=== PATIENT | female | born 2000 | race Caucasian/White ===

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

== ENCOUNTER 2019-01-04 13:24 | Emergency (ER) | payer OTHER ==
[~2019-01-04] VITALS: Ht 172.7 cm; Wt 69.0 kg
[2019-01-04 13:47] VITALS: BP 124/64
--- NOTE | 2019-01-04 14:06 | NUR ---
PT STATES SHE HAD WHAT SEEMED LIKE A PIMPLE ABOVE THE RIGHT EYE TWO DAYS AGO. SHE PICKED AT IT AND IT SPREAD. RIGHT EYE SWELLING. PT STATES BLURRY EYE
== END 2019-01-04 14:31 | disposition home or self-care (01) ==
LOC: ED 13:50
DX: L02.811 Cutaneous abscess of head [any part, except face] (principal); F17.200 Nicotine dependence, unspecified, uncomplicated
CPT/HCPCS: 99283

== ENCOUNTER 2019-07-21 18:22 | Emergency (ER) | payer OTHER ==
[~2019-07-21] VITALS: Ht 172.7 cm; Wt 70.2 kg
[2019-07-21] MEDS ORDERED: ACETAMINOPHEN 500 MG TABLET PO ONE (19:30)
[2019-07-21] MEDS ORDERED: SODIUM CHLORIDE FLUSH 10ML SYR IVF ONE (19:30)
[2019-07-21] MEDS ORDERED: LIDOCAINE 1%-EPI 1:100K, 20ML INFIL ONE (19:30)
[2019-07-21] MEDS ORDERED: VANCOMYCIN 1,400 MG in SODIUM CHLORIDE 0.9% 250 ML IV ONE (19:30)
[2019-07-21] MEDS ORDERED: VANCOMYCIN PER PHARMACY MC ONE (19:30)
[2019-07-21] MEDS ORDERED: SODIUM CHLORIDE 0.9% 1,000ML IVBOLUS ONE (19:30)
[2019-07-21] MEDS ORDERED: PIPERACILLIN/TAZO/PMX 3.375GM 50 ML IVPB ONE (19:30)
[2019-07-21] MEDS ORDERED: PHARMACOKINETIC CONSULTATION MC ONE (19:30)
[2019-07-21] MEDS ORDERED: LIDOCAINE 1%-EPI 1:100K, 20ML ONE (19:35)
[2019-07-21] MEDS ORDERED: PIPERACILLIN/TAZO/PMX 3.375GM 50 ML ONE (19:36)
[2019-07-21] MEDS ORDERED: ACETAMINOPHEN 500 MG TABLET ONE (19:36)
[2019-07-21] MEDS ORDERED: LIDOCAINE-MPF 1%, 5ML ONE (19:36)
[2019-07-21 19:44] LABS: BASOPHILS # (AUTO) 0.03 x10^3/uL (0-0.3); BASOPHILS % (AUTO) 0 % (0-1); EOSINOPHILS # (AUTO) 0.21 x10^3/uL (0-0.8); EOSINOPHILS % (AUTO) 3 % (1-7); LYMPHOCYTES # (AUTO) 0.91 x10^3/uL (1-6.1); LYMPHOCYTES % (AUTO) 13 % (22-44); MD NO; MEAN CORPUSCULAR HGB CONC 32.3 g/dL (32.4-35.8); MEAN CORPUSCULAR VOLUME 86.5 fL (80-100); MEAN PLATELET VOLUME 8.4 fL (7.4-10.4); MONOCYTES # (AUTO) 0.65 x10^3/uL (0-1.4); MONOCYTES % (AUTO) 9 % (2-9); NEUTROPHILS # (AUTO) 5.41 x10^3/uL (1.8-8.0); NEUTROPHILS % (AUTO) 75 % (42-75); PLATELET COUNT 231 x10^3/uL (130-400); RED BLOOD COUNT 4.16 x10^6/uL (3.82-5.3); RED CELL DISTRIBUTION WIDTH 12.9 % (9.6-15.2)
[2019-07-21 19:53] LABS: ALBUMIN 3.6 g/dL (3.4-5.0); ANION GAP 6 mmol/L (5-15); CALCIUM 8.4 mg/dL (8.5-10.1); CHLORIDE 105 mmol/L (98-107); CREATININE 0.82 mg/dL (0.55-1.02)
--- NOTE | 2019-07-21 20:40 | NUR ---
Patient into room, looks well nourished. Face has multiple small scabs and arms have multiple injection sites with several being swollen, hard to the touch, but without warmth, redness or tenderness to the touch. Patient admits to drug use of heroin and methamphetamine with last narcotic use this am. Patient comes in complaining of warmth and tenderness to the upper thigh. Patient has sister at bedside. Patient assessed by provider. Orders placed. Reviewed with patient medications and labs to be drawn. RN and phlebotomy to bedside, iv started with first set of blood cultures and chopped strand operator edmond second set of blood cultures and the rest of labs. Patient became extremely anxious, complaining about abdominal pain. Patient was disconnected from monitor, allowed to use the bathroom. Patient after several minutes finished up in bathroom, began talking at a high rate and was difficult to understand. Patient stating that she didn't want to be in the hospital anymore and wanted to leave. Educated the patient on the AMA process and then emphasized education on sepsis given patient's low blood pressure and high heart rate. Patient finally accepting of staying. Started first course of antibiotics and fluids. Midlevel provider to bedside to numb area. Patient anxious and yelling. See provider note for procedure. Patient then calmed down after complete and lights turned off. Now sleeping.
--- NOTE | 2019-07-21 21:18 | NUR ---
RN to bedside to start, patient sleeping. Physician in to educate patient on lab values and response to interventions in the ER. Patient expressing desire to go home. Provider educated patient on options and gave the patient a 50% chance of needing to return to the ER if she goes home on antiobiotics. Patient verbalized understanding. Acknowledges that her vitals are likely affected by being "dope sick" per patient's statement. Second antiobiotics started with physician at bedside. Awaiting to finish fluids and iv abx.
--- NOTE | 2019-07-21 22:19 | NUR ---
Provider to bedside for recheck. Patient sleeping, patient hr still sinus tachycardia but has leveled off at near sinus rhythm. Vancomycin still running, will inform to recheck when antibiotics complete.
[2019-07-21 23:06] VITALS: BP 119/62
== END 2019-07-21 23:21 | disposition home or self-care (01) ==
LOC: ED 21:02
DX: L03.116 Cellulitis of left lower limb (principal); L02.416 Cutaneous abscess of left lower limb; F15.10 Other stimulant abuse, uncomplicated; F11.10 Opioid abuse, uncomplicated; Z87.891 Personal history of nicotine dependence
CPT/HCPCS: 10060; 36415; 80048; 82040; 83605; 85025; 87040; 96365; 96366; 96368; 99283; J2543; J3370; J7030; J7050

== ENCOUNTER 2019-10-10 08:22 | Emergency (ER) | payer MEDICAID, OTHER ==
[~2019-10-10] VITALS: Ht 172.7 cm; Wt 70.7 kg
--- NOTE | 2019-10-10 08:40 | NUR ---
PA-C IS AT THE BEDSIDE FOR ASSESSMENT.
--- NOTE | 2019-10-10 08:42 | NUR ---
IS AT THE BEDSIDE
[2019-10-10] MEDS ORDERED: SODIUM CHLORIDE FLUSH 10ML SYR IVF ONE (09:00)
--- NOTE | 2019-10-10 09:05 | NUR ---
HORTENCIA (rn) is assuming care of this pt at this time. sbar rEPORT WAS EXCHANGED AT THE BEDSIDE.
[2019-10-10 09:15] LABS: BASOPHILS # (AUTO) 0.02 x10^3/uL (0-0.3); BASOPHILS % (AUTO) 0 % (0-1); EOSINOPHILS # (AUTO) 0.25 x10^3/uL (0-0.8); EOSINOPHILS % (AUTO) 4 % (1-7); LYMPHOCYTES # (AUTO) 1.26 x10^3/uL (1-6.1); LYMPHOCYTES % (AUTO) 21 % (22-44); MD NO; MEAN CORPUSCULAR HEMOGLOBIN 26.3 pg (27.0-34.8); MEAN CORPUSCULAR HGB CONC 32.9 g/dL (32.4-35.8); MEAN CORPUSCULAR VOLUME 79.8 fL (80-100); MEAN PLATELET VOLUME 8.1 fL (7.4-10.4); MONOCYTES # (AUTO) 0.61 x10^3/uL (0-1.4); MONOCYTES % (AUTO) 10 % (2-9); NEUTROPHILS # (AUTO) 3.88 x10^3/uL (1.8-8.0); NEUTROPHILS % (AUTO) 65 % (42-75); PLATELET COUNT 258 x10^3/uL (130-400); RED BLOOD COUNT 4.16 x10^6/uL (3.82-5.3); RED CELL DISTRIBUTION WIDTH 14.4 % (9.6-15.2)
--- NOTE | 2019-10-10 09:15 | NUR ---
report received from ANTHONY Bob at bedside. pt drowsy, resps even and unlabored. bp and spo2 monitors in place. PIV placed by RN Paulino. pt awaiting hcg level prior to CT scan.
[2019-10-10 09:24] LABS: ALANINE AMINOTRANSFERASE 9 U/L (12-78); ALBUMIN 3.1 g/dL (3.4-5.0); ANION GAP 7 mmol/L (5-15); CALCIUM 8.1 mg/dL (8.5-10.1); CHLORIDE 102 mmol/L (98-107); CREATININE 0.77 mg/dL (0.55-1.02)
[2019-10-10 09:29] LABS: ALKALINE PHOSPHATASE 109 U/L (45-117); BILIRUBIN,TOTAL 0.3 mg/dL (0.2-1.0); TOTAL PROTEIN 7.5 g/dL (6.4-8.2)
--- NOTE | 2019-10-10 09:30 | NUR ---
late entry d/t patient care: pt admits to using heroin this am, just prior to arrival to ED. pt states she does not have any drugs on her person. pt's pupils are 3mm, equal round and reactive. Pt's belongings placed in bag, on chair in room. all monitors in place, call light in reach, pt instructed to call for staff assistance before getting out of bed. awaiting CT and dispo.
[2019-10-10] MEDS ORDERED: OMNIPAQUE 350 MG/ML, 100ML BOTTLE ONE (10:26)
--- NOTE | 2019-10-10 10:37 | NUR ---
pt remains drowsy, awakens to voice, oriented x 4. pt denies pain. resps even and unlabored. pupils equal, round and reactive to light, 3mm. call light in reach. awaiting CT results and dispo.
--- NOTE | 2019-10-10 11:02 | NUR ---
pt sleeping, resps even and unlabored. nsr on hall monitor with no ectopy. all results back, awaiting ENT consult and dispo at this time.
--- NOTE | 2019-10-10 11:05 | NUR ---
dr marques spoke with dr bonnie dumont
--- NOTE | 2019-10-10 11:09 | NUR ---
report to break RN Paulino.
--- NOTE | 2019-10-10 11:21 | NUR ---
I am assuming care of this pt while art enjoys a break. sbar was exchanged at the bedside.
[2019-10-10] MEDS ORDERED: AMPICILLIN/SULBACTAM 3 GM in SODIUM CHLORIDE 0.9% 100 ML IV ONE (11:30)
--- NOTE | 2019-10-10 11:59 | NUR ---
art (rn) is assuming care of this pt at this time. sbar was exchanged at the bedside.
--- NOTE | 2019-10-10 12:01 | NUR ---
this RN now back from break, IV ancef infusion is complete. ARIEL Smith informed pt is still drowsy, VSS. pt to be discharged when safe to ambulate.
[2019-10-10 12:08] VITALS: BP 104/59
--- NOTE | 2019-10-10 12:10 | NUR ---
pt awakens to voice, oriented x 4. EDMD VanBibber at bedside to explain results and POC. PIV dc'd with tip intact.
--- NOTE | 2019-10-10 12:37 | NUR ---
pt given dc instructions and script, educated regarding rx for omnicef and keflex. pt educated not to drive today, pt given cab voucher. pt awake, alert and oriented x4, resps even and unlabored. PIV dc'd with tip intact. pt verbalizes that she has a safe place to discharge to (friend's house). pt amb to dc desk with steady gait, nadn at dc.
== END 2019-10-10 12:38 ==
LOC: ED 09:18
DX: L02.11 Cutaneous abscess of neck (principal); L02.415 Cutaneous abscess of right lower limb; L02.416 Cutaneous abscess of left lower limb; F11.20 Opioid dependence, uncomplicated
CPT/HCPCS: 36415; 70491; 80053; 84703; 85025; 96365; 99284; J0295; Q9967

== ENCOUNTER 2020-01-21 17:11 | Emergency (ER) | payer BC, MEDICAID ==
[~2020-01-21] VITALS: Ht 172.7 cm; Wt 69.5 kg
--- NOTE | 2020-01-21 17:50 | NUR ---
PATIENT TO ROOM FROM LOBBY
[2020-01-21] MEDS ORDERED: AMOXICILLIN 500 MG CAPSULE ONE (18:18)
[2020-01-21] MEDS ORDERED: ACETAMINOPHEN 500 MG TABLET ONE (18:18)
[2020-01-21] MEDS ORDERED: AMOXICILLIN 500 MG CAPSULE PO ONE (18:30)
[2020-01-21] MEDS ORDERED: ACETAMINOPHEN 500 MG TABLET PO ONE (18:30)
--- NOTE | 2020-01-21 18:30 | NUR ---
PATIENT MEDICATED PER EMAR, TOLERATED WELL. TOLERATING FLUIDS WELL AT THIS TIME
[2020-01-21 18:43] VITALS: BP 111/64
== END 2020-01-21 19:13 | disposition home or self-care (01) ==
LOC: ED 17:30
DX: J02.0 Streptococcal pharyngitis (principal); R50.9 Fever, unspecified
CPT/HCPCS: 99283

== ENCOUNTER 2020-02-02 22:40 | Emergency (ER) | payer BC, MEDICAID ==
[~2020-02-02] VITALS: Ht 172.7 cm; Wt 67.1 kg
[2020-02-02 22:47] VITALS: BP 106/66
== END 2020-02-02 23:48 | disposition home or self-care (01) ==
LOC: ED 23:30
DX: L03.213 Periorbital cellulitis (principal); L01.01 Non-bullous impetigo
CPT/HCPCS: 99283; 99406

== ENCOUNTER 2020-05-14 23:58 | Emergency (ER) | payer BC, MEDICAID ==
[~2020-05-14] VITALS: Ht 172.7 cm; Wt 67.0 kg
[2020-05-15] VITALS: BP 124/64
[2020-05-15] MEDS ORDERED: SULFAMETH./TRIMETHOPRIM DS 800MG/160MG TABLET ONE (00:49)
[2020-05-15] MEDS ORDERED: CEPHALEXIN 500 MG CAPSULE ONE (00:49)
[2020-05-15] MEDS ORDERED: CEPHALEXIN 500 MG CAPSULE PO ONE (01:00)
[2020-05-15] MEDS ORDERED: SULFAMETH./TRIMETHOPRIM DS 800MG/160MG TABLET PO ONE (01:00)
--- NOTE | 2020-05-15 01:34 | NUR ---
Pt left AMA with script for abx. First dose given in ED. Pt verbalizes understanding r/t taking full course of abx and arranging PCP. States she is going to take the bus home. Ambulated out of ED independently, steady gait. No IV in place
== END 2020-05-15 01:36 | disposition left against medical advice (07) ==
LOC: ED 05-15 01:15
DX: L03.113 Cellulitis of right upper limb (principal); M79.641 Pain in right hand
CPT/HCPCS: 99283

== ENCOUNTER 2020-05-15 13:51 | Inpatient (IN) | payer BC, MEDICAID ==
[~2020-05-15] VITALS: Ht 172.7 cm; Wt 67.5 kg
[2020-05-15 15:08] LABS: BASOPHILS # (AUTO) 0.01 x10^3/uL (0-0.1); BASOPHILS % (AUTO) 0 % (0-1); EOSINOPHILS # (AUTO) 0.17 x10^3/uL (0-0.4); EOSINOPHILS % (AUTO) 4 % (1-7); LYMPHOCYTES # (AUTO) 0.83 x10^3/uL (1-3.4); LYMPHOCYTES % (AUTO) 17 % (22-44); MD NO; MEAN CORPUSCULAR HEMOGLOBIN 25.3 pg (27.0-34.8); MEAN CORPUSCULAR HGB CONC 32.4 g/dL (32.4-35.8); MEAN CORPUSCULAR VOLUME 78.2 fL (80-100); MEAN PLATELET VOLUME 8.6 fL (7.4-10.4); MONOCYTES # (AUTO) 0.36 x10^3/uL (0.2-0.8); MONOCYTES % (AUTO) 7 % (2-9); NEUTROPHILS # (AUTO) 3.47 x10^3/uL (1.8-6.8); NEUTROPHILS % (AUTO) 72 % (42-75); PLATELET COUNT 225 x10^3/uL (130-400); RED BLOOD COUNT 4.46 x10^6/uL (3.82-5.3); RED CELL DISTRIBUTION WIDTH 14.4 % (9.6-15.2)
[2020-05-15 15:13] LABS: ALANINE AMINOTRANSFERASE 13 U/L (12-78); ALBUMIN 3.3 g/dL (3.4-5.0); ANION GAP 5 mmol/L (5-15); CHLORIDE 106 mmol/L (98-107); CREATININE 0.76 mg/dL (0.55-1.02)
[2020-05-15 15:16] LABS: ALKALINE PHOSPHATASE 98 U/L (45-117); BILIRUBIN,TOTAL 0.4 mg/dL (0.2-1.0); TOTAL PROTEIN 7.8 g/dL (6.4-8.2)
--- NOTE | 2020-05-15 15:29 | NUR ---
CARPENTRY SPECIALIST: PT AMBULATORY WITH STEADY GAIT TO ROOM. MAGDALENO
--- NOTE | 2020-05-15 15:38 | NUR ---
first contact with pt. pt c/o r hand swelling/pain. pt was here last night for the same reasons but pt left ama last night. pt denies any other sx. pt using heroin and meth. pt's aox4. resps even and unlabored. bp/spo2 monitors in place. call light within reach.
[2020-05-15] MEDS ORDERED: PIPERACILLIN/TAZO/PMX 3.375GM 50 ML IV ONE (16:30)
[2020-05-15] MEDS ORDERED: VANCOMYCIN PER PHARMACY MC PRN (16:30)
[2020-05-15] MEDS ORDERED: VANCOMYCIN 1,600 MG in SODIUM CHLORIDE 0.9% 250 ML IV ONE (16:30)
[2020-05-15] MEDS ORDERED: SODIUM CHLORIDE 0.9% 1,000ML IVBOLUS ONE (16:30)
--- NOTE | 2020-05-15 16:33 | NUR ---
lab at bedside for bc at this time.
[2020-05-15] MEDS ORDERED: PIPERACILLIN/TAZO/PMX 3.375GM 50 ML ONE (16:35)
[2020-05-15 16:45] LABS: CALCIUM 9.2 mg/dL (8.5-10.1)
--- NOTE | 2020-05-15 16:49 | NUR ---
piv est on l ac by latisha matias. abx/ns infusing at this time after bc x 2. pt tolerated well.
--- NOTE | 2020-05-15 18:30 | NUR ---
pt sleeipng in [facility]. resps even and unlabored. bp/spo2 monitors in place. call light within reach.
--- NOTE | 2020-05-15 18:51 | NUR ---
report given to ritesh matias.
--- NOTE | 2020-05-15 18:54 | NUR ---
PT SLEEPING, RESPRIRATIONS EVEN AND UNLABORED, EYES CLOSED. CONNECTED TO BP AND O2 MONITORS, VSS. FLUIDS AND ABX INFUSING. BEDSIDE REPORT RECEIVED FROM ANTHONY MILLS.
--- NOTE | 2020-05-15 19:20 | NUR ---
REPORT GIVEN TO ASHLEY BEST RN.
[2020-05-15 19:38] VITALS: BP 116/74
[2020-05-15 19:44] VITALS: BP 116/74
[2020-05-16 00:39] VITALS: BP 103/63
[2020-05-16] MEDS ORDERED: LIDODERM 5% PATCH TD PRN (01:00)
[2020-05-16] MEDS ORDERED: PHARMACOKINETIC CONSULTATION MC ONE (01:00)
[2020-05-16] MEDS ORDERED: PHARMACOKINETIC MONITORING MC PRN (01:00)
[2020-05-16] MEDS ORDERED: PIPERACILLIN/TAZO/PMX 3.375GM 50 ML IV SCH (01:00)
[2020-05-16] MEDS ORDERED: TEMAZEPAM 15 MG CAPSULE PO PRN (01:00)
[2020-05-16] MEDS ORDERED: ACETAMINOPHEN 325 MG TABLET PO PRN (01:00)
[2020-05-16] MEDS ORDERED: DOCUSATE 100 MG CAPSULE PO PRN (01:00)
[2020-05-16] MEDS ORDERED: VANCOMYCIN PER PHARMACY MC PRN (01:00)
[2020-05-16] MEDS ORDERED: KETOROLAC 30 MG/1 ML IV PRN (01:00)
[2020-05-16] MEDS ORDERED: morphine SULFATE 10 MG/ML, 1ML IVPush PRN (01:00)
[2020-05-16] MEDS ORDERED: ONDANSETRON 2MG/ML, 2ML IVPush PRN (01:00)
[2020-05-16] MEDS: VANCOMYCIN 1,300 MG in SODIUM CHLORIDE 0.9% 250 ML IV SCH ×2 (01:33→17:47)
[2020-05-16] MEDS: OXYcodone IR 5MG TABLET PO PRN ×3 (04:58→09:09)
[2020-05-16 08:09] VITALS: BP 91/50
[2020-05-16] MEDS: AMPICILLIN/SULBACTAM 3 GM in SODIUM CHLORIDE 0.9% 100 ML IV SCH ×2 (09:24→17:02)
[2020-05-16] MEDS: METHADONE 10 MG TABLET PO SCH ×2 (09:36→17:04)
[2020-05-16 13:44] VITALS: BP 99/60
[2020-05-16 18:51] VITALS: BP 102/66
== END 2020-05-16 21:00 | disposition left against medical advice (07) | DRG 603 ==
LOC: ED 17:24 → EDIP 17:25 → ED 17:39 → 3N 19:29
PROVIDERS: ADMIT Internal Medicine; ATTEND Hospitalist
PROC: 02HV33Z Insertion of Infusion Device into Superior Vena Cava, Percutaneous Approach (ICD-10-PCS; principal; 2020-05-16)
PROC: B548ZZA Ultrasonography of Superior Vena Cava, Guidance (ICD-10-PCS; 2020-05-16)
PROC: B5181ZA Fluoroscopy of Superior Vena Cava using Low Osmolar Contrast, Guidance (ICD-10-PCS; 2020-05-16)
DX: L03.113 Cellulitis of right upper limb (principal); F11.10 Opioid abuse, uncomplicated; F60.3 Borderline personality disorder; F41.9 Anxiety disorder, unspecified; Z86.14 Personal history of Methicillin resistant Staphylococcus aureus infection; Z91.010 Allergy to peanuts; M41.9 Scoliosis, unspecified
CPT/HCPCS: 36415; 36573; 80053; 83605; 84145; 85025; 87040; G0378; J0295; J2543; J3370; C1751; J7030; J7050

== ENCOUNTER 2020-06-18 21:11 | Emergency (ER) | payer BC, MEDICAID ==
[~2020-06-18] VITALS: Ht 172.7 cm; Wt 68.6 kg
[2020-06-18] MEDS ORDERED: SODIUM CHLORIDE FLUSH 10ML SYR IVF ONE (23:00)
[2020-06-18] MEDS ORDERED: CLINDAMYCIN PMX 900MG/50ML 50 ML IVPB ONE (23:00)
[2020-06-18 23:30] LABS: BASOPHILS % (AUTO) 1 % (0-1); EOSINOPHILS % (AUTO) 7 % (1-7); LYMPHOCYTES % (AUTO) 31 % (22-44); MEAN CORPUSCULAR HEMOGLOBIN 25.2 pg (27.0-34.8); MEAN CORPUSCULAR HGB CONC 32.3 g/dL (32.4-35.8); MONOCYTES % (AUTO) 10 % (2-9); NEUTROPHILS % (AUTO) 52 % (42-75); PLATELET COUNT 255 x10^3/uL (130-400); RED BLOOD COUNT 4.13 x10^6/uL (3.82-5.3); RED CELL DISTRIBUTION WIDTH 14.7 % (9.6-15.2)
[2020-06-18] MEDS ORDERED: CLINDAMYCIN PMX 900MG/50ML 50 ML ONE (23:33)
[2020-06-18 23:34] LABS: MD NO
[2020-06-18 23:39] LABS: ALANINE AMINOTRANSFERASE 18 U/L (12-78); ALBUMIN 3.2 g/dL (3.4-5.0); ANION GAP 6 mmol/L (5-15); CALCIUM 8.4 mg/dL (8.5-10.1); CHLORIDE 107 mmol/L (98-107); CREATININE 0.68 mg/dL (0.55-1.02)
[2020-06-18 23:41] LABS: ALKALINE PHOSPHATASE 107 U/L (45-117); BILIRUBIN,TOTAL 0.2 mg/dL (0.2-1.0); TOTAL PROTEIN 7.3 g/dL (6.4-8.2)
[2020-06-19] MEDS ORDERED: SODIUM CHLORIDE 0.9% 1,000ML IVBOLUS ONE (01:00)
[2020-06-19 04:23] VITALS: BP 108/65
== END 2020-06-19 04:25 | disposition home or self-care (01) ==
LOC: ED 22:36
DX: L03.115 Cellulitis of right lower limb (principal); F15.20 Other stimulant dependence, uncomplicated; F11.20 Opioid dependence, uncomplicated; F17.210 Nicotine dependence, cigarettes, uncomplicated
CPT/HCPCS: 36415; 80053; 85025; 87040; 96365; 96366; 99285; 99406; J7030

== ENCOUNTER 2020-09-14 02:21 | Emergency (ER) | payer BC, MEDICAID ==
[~2020-09-14] VITALS: Ht 172.7 cm; Wt 69.0 kg
[2020-09-14 02:32] VITALS: BP 105/61
[2020-09-14] MEDS ORDERED: VANCOMYCIN 1,600 MG in SODIUM CHLORIDE 0.9% 250 ML IV ONE (04:00)
[2020-09-14] MEDS ORDERED: SODIUM CHLORIDE 0.9% 1,000ML IVBOLUS ONE (04:00)
[2020-09-14] MEDS ORDERED: PIPERACILLIN/TAZO/PMX 3.375GM 50 ML IVPB ONE (04:00)
[2020-09-14] MEDS ORDERED: VANCOMYCIN PER PHARMACY MC ONE (04:00)
--- NOTE | 2020-09-14 04:43 | NUR ---
REPORT RECIEVED FROM ANTHONY GAMBOA
[2020-09-14 05:01] LABS: ALANINE AMINOTRANSFERASE 16 U/L (12-78); ALBUMIN 3.5 g/dL (3.4-5.0); ANION GAP 6 mmol/L (5-15); BASOPHILS % (AUTO) 1 % (0-1); CALCIUM 8.7 mg/dL (8.5-10.1); CHLORIDE 105 mmol/L (98-107); CREATININE 0.65 mg/dL (0.55-1.02); EOSINOPHILS % (AUTO) 5 % (1-7); LYMPHOCYTES % (AUTO) 25 % (22-44); MEAN CORPUSCULAR HEMOGLOBIN 25.4 pg (27.0-34.8); MEAN CORPUSCULAR HGB CONC 33.5 g/dL (32.4-35.8); MEAN PLATELET VOLUME 8.2 fL (7.4-10.4); MONOCYTES % (AUTO) 10 % (2-9); NEUTROPHILS % (AUTO) 60 % (42-75); PLATELET COUNT 261 x10^3/uL (130-400); RED BLOOD COUNT 4.08 x10^6/uL (3.82-5.3); RED CELL DISTRIBUTION WIDTH 15.5 % (9.6-15.2)
[2020-09-14 05:06] LABS: ALKALINE PHOSPHATASE 123 U/L (45-117); BILIRUBIN,TOTAL 0.7 mg/dL (0.2-1.0); TOTAL PROTEIN 7.8 g/dL (6.4-8.2)
[2020-09-14 05:19] LABS: MD NO
== END 2020-09-14 04:58 | disposition left against medical advice (07) ==
LOC: ED 03:53
DX: A41.9 Sepsis, unspecified organism (principal); F11.129 Opioid abuse with intoxication, unspecified; L03.113 Cellulitis of right upper limb; Z72.9 Problem related to lifestyle, unspecified
CPT/HCPCS: 36415; 80053; 83605; 84145; 84703; 85025; 87040; 99291

== ENCOUNTER 2020-11-07 04:15 | Emergency (ER) | payer BC, MEDICAID ==
[~2020-11-07] VITALS: Ht 172.7 cm; Wt 69.9 kg
--- NOTE | 2020-11-07 04:47 | NUR ---
Patient presents to ER c/o swelling to left foot/leg, redness to left foot, and swelling to right foot/leg. Patient has a hx of cellulitis in the left foot from drug use injection. Patient admits to using meth and heroin. Patient has had the bilat low ext swelling x1-2 days. Last time patient injected drugs was 3 days ago. Patient is in NAD. REspirations even and unlabored.
[2020-11-07] MEDS ORDERED: ACETAMINOPHEN 325 MG TABLET ONE (04:52)
[2020-11-07] MEDS ORDERED: CEFAZOLIN 1,000 MG ONE (04:52)
[2020-11-07] MEDS ORDERED: ACETAMINOPHEN 325 MG TABLET PO ONE (05:00)
[2020-11-07] MEDS ORDERED: CEFAZOLIN 1,000 MG IM ONE (05:00)
--- NOTE | 2020-11-07 05:02 | NUR ---
US at bedside.
[2020-11-07] MEDS ORDERED: LORazepam 1MG TABLET PO ONE (06:00)
[2020-11-07 06:17] LABS: BASOPHILS % (AUTO) 1 % (0-1); EOSINOPHILS % (AUTO) 6 % (1-7); LYMPHOCYTES % (AUTO) 21 % (22-44); MEAN CORPUSCULAR HEMOGLOBIN 24.5 pg (27.0-34.8); MEAN CORPUSCULAR HGB CONC 32.6 g/dL (32.4-35.8); MEAN PLATELET VOLUME 8.4 fL (7.4-10.4); MONOCYTES % (AUTO) 12 % (2-9); NEUTROPHILS % (AUTO) 61 % (42-75); PLATELET COUNT 237 x10^3/uL (130-400); RED CELL DISTRIBUTION WIDTH 15.7 % (9.6-15.2)
[2020-11-07 06:22] LABS: MD NO
[2020-11-07 06:25] LABS: ALANINE AMINOTRANSFERASE 19 U/L (12-78); ALBUMIN 3.1 g/dL (3.4-5.0); ANION GAP 7 mmol/L (5-15); CALCIUM 8.3 mg/dL (8.5-10.1); CHLORIDE 105 mmol/L (98-107)
[2020-11-07 06:28] LABS: ALKALINE PHOSPHATASE 113 U/L (45-117); BILIRUBIN,TOTAL 0.3 mg/dL (0.2-1.0); CREATININE 0.58 mg/dL (0.55-1.02); TOTAL PROTEIN 7.4 g/dL (6.4-8.2)
[2020-11-07 06:52] VITALS: BP 98/52
== END 2020-11-07 06:54 | disposition home or self-care (01) ==
LOC: ED 04:37
DX: L03.116 Cellulitis of left lower limb (principal); F15.10 Other stimulant abuse, uncomplicated; F11.10 Opioid abuse, uncomplicated; F17.210 Nicotine dependence, cigarettes, uncomplicated
CPT/HCPCS: 36415; 73630; 80053; 83605; 85025; 93970; 96372; 99285; J0690

== ENCOUNTER 2020-12-05 00:44 | Emergency (ER) | payer BC, MEDICAID ==
[~2020-12-05] VITALS: Ht 172.7 cm; Wt 71.9 kg
[2020-12-05 01:37] LABS: BASOPHILS % (AUTO) 1 % (0-1); EOSINOPHILS % (AUTO) 8 % (1-7); LYMPHOCYTES % (AUTO) 42 % (22-44); MEAN CORPUSCULAR HEMOGLOBIN 24.6 pg (27.0-34.8); MEAN CORPUSCULAR HGB CONC 32.1 g/dL (32.4-35.8); MEAN PLATELET VOLUME 8.5 fL (7.4-10.4); MONOCYTES % (AUTO) 9 % (2-9); NEUTROPHILS % (AUTO) 41 % (42-75); PLATELET COUNT 203 x10^3/uL (130-400); RED BLOOD COUNT 4.06 x10^6/uL (3.82-5.3); RED CELL DISTRIBUTION WIDTH 16.3 % (9.6-15.2)
[2020-12-05 01:38] LABS: ALANINE AMINOTRANSFERASE 15 U/L (12-78); ALBUMIN 3.3 g/dL (3.4-5.0); ANION GAP 5 mmol/L (5-15); CALCIUM 8.1 mg/dL (8.5-10.1); CHLORIDE 110 mmol/L (98-107); CREATININE 0.67 mg/dL (0.55-1.02)
[2020-12-05 01:39] LABS: MD NO
[2020-12-05 01:43] LABS: ALKALINE PHOSPHATASE 89 U/L (45-117); BILIRUBIN,TOTAL 0.1 mg/dL (0.2-1.0); TOTAL PROTEIN 6.8 g/dL (6.4-8.2); TROPONIN I < 0.015 ng/mL (0.000-0.045)
[2020-12-05 02:36] VITALS: BP 134/74
== END 2020-12-05 02:38 | disposition home or self-care (01) ==
LOC: ED 02:00
DX: R07.89 Other chest pain (principal); R06.00 Dyspnea, unspecified; R06.02 Shortness of breath; R51.9 Headache, unspecified; M79.89 Other specified soft tissue disorders
CPT/HCPCS: 36415; 71045; 80053; 83880; 84484; 85025; 93005; 99285

== ENCOUNTER 2021-01-27 12:52 | Emergency (ER) | payer BC, MEDICAID ==
[~2021-01-27] VITALS: Ht 172.7 cm; Wt 70.9 kg
[2021-01-27 13:00] VITALS: BP 124/74
== END 2021-01-27 13:41 | disposition home or self-care (01) ==
LOC: ED 13:36
DX: L02.01 Cutaneous abscess of face (principal)
CPT/HCPCS: 99283

== ENCOUNTER 2021-05-20 00:12 | Emergency (ER) | payer BC, MEDICAID ==
[~2021-05-20] VITALS: Ht 172.7 cm; Wt 72.7 kg
--- NOTE | 2021-05-20 00:38 | NUR ---
PT PRESENTS TO THE ER FOR MULTIPLE ABCESS' AROUND HER BODY, PT STATES SHE IS VERY NAUSEA AND PT STATES HER RIGHT EAR IS PAIN AND SWOLLEN SHUT, PT ALSO COMPLAINING OF A HEADACHE, PT USES IV METH AND HEROIN PTS LAST USE OF HEROIN WAS AN HOUR AGO AND METH WAS YESTERDAY
--- NOTE | 2021-05-20 00:46 | NUR ---
MD AT BEDSIDE FOR ASSESSMENT AND TO DISCUSS POC
[2021-05-20 01:13] LABS: BASOPHILS % (AUTO) 0 % (0-1); EOSINOPHILS % (AUTO) 4 % (1-7); LYMPHOCYTES % (AUTO) 18 % (22-44); MEAN CORPUSCULAR HEMOGLOBIN 24.7 pg (27.0-34.8); MEAN CORPUSCULAR HGB CONC 32.8 g/dL (32.4-35.8); MEAN PLATELET VOLUME 8.3 fL (7.4-10.4); MONOCYTES % (AUTO) 9 % (2-9); NEUTROPHILS % (AUTO) 68 % (42-75); PLATELET COUNT 175 x10^3/uL (130-400); RED BLOOD COUNT 4.41 x10^6/uL (3.82-5.3); RED CELL DISTRIBUTION WIDTH 15.8 % (9.6-15.2)
[2021-05-20 01:21] LABS: ALANINE AMINOTRANSFERASE 19 U/L (12-78); ALBUMIN 3.1 g/dL (3.4-5.0); ANION GAP 6 mmol/L (5-15); CALCIUM 8.2 mg/dL (8.5-10.1); CHLORIDE 105 mmol/L (98-107); CREATININE 0.51 mg/dL (0.55-1.02)
[2021-05-20 01:25] LABS: ALKALINE PHOSPHATASE 98 U/L (45-117); BILIRUBIN,TOTAL 0.3 mg/dL (0.2-1.0); TOTAL PROTEIN 7.4 g/dL (6.4-8.2)
--- NOTE | 2021-05-20 01:33 | NUR ---
PT ASLEEP I NBED, ALL NEEDS IN REACH, CALL LIGHT IN REACH, NAD AT THIS TIME, VSS
[2021-05-20] MEDS ORDERED: AMOXICILLIN 500 MG CAPSULE ONE (02:27)
[2021-05-20] MEDS ORDERED: AMOXICILLIN 500 MG CAPSULE PO ONE (02:30)
[2021-05-20 03:06] VITALS: BP 112/65
== END 2021-05-20 03:08 | disposition home or self-care (01) ==
LOC: ED 01:32
DX: R11.2 Nausea with vomiting, unspecified (principal); H66.001 Acute suppurative otitis media without spontaneous rupture of ear drum, right ear
CPT/HCPCS: 36415; 80053; 83690; 84703; 85025; 99283